=== PATIENT | female | born 1970 | race Native Hawaiian/Other Pacific Islander ===

== ENCOUNTER 2021-01-25 20:42 | Emergency (ER) | payer BC ==
[~2021-01-25] VITALS: Ht 170.2 cm; Wt 104.3 kg
[2021-01-25] MEDS ORDERED: ZESTRIL40 MG PO (21:03)
[2021-01-25] MEDS ORDERED: CADUET10 MG/10 M PO (21:04)
[2021-01-25 21:19] LABS: PLATELET COUNT 292 K/uL (152-353)
[2021-01-25 21:57] LABS: SODIUM 136 mmol/L (136-145)
[2021-01-25 23:00] VITALS: BP 130/65; TEMP 98
== END 2021-01-25 23:00 | disposition home or self-care (01) ==
LOC: ED 20:42
PROVIDERS: Hospitalist
DX: K52.89 Other specified noninfective gastroenteritis and colitis (principal); R19.7 Diarrhea, unspecified; R11.2 Nausea with vomiting, unspecified
CPT/HCPCS: 36415; 80053; 81000; 82150; 83605; 83690; 84484; 85027; 93005; 96360; 96365; 96375; 99284; J1885; J1956; J2270; J2405

== ENCOUNTER 2021-03-01 18:18 | Emergency (ER) | payer BC ==
[~2021-03-01 18:18] MED LIST: CADUET10 MG/10 M PO; ZESTRIL40 MG PO
[2021-03-14 07:22] LABS: PLATELET COUNT 235 K/uL (152-353); POTASSIUM 3.9 mmol/L (3.6-5.2); SODIUM 139 mmol/L (136-145)
== END 2021-03-01 21:27 | disposition home or self-care (01) ==
LOC: ED 18:18
PROVIDERS: Emergency Medicine
DX: J01.80 Other acute sinusitis (principal); Z87.898 Personal history of other specified conditions
CPT/HCPCS: 36415; 80048; 82550; 82553; 84484; 85027; 93005; 96365; 96372; 96375; 99284; J1100; J2405; J3030